=== PATIENT | female | born 1960 | race American Indian/Alaskan Native ===

== ENCOUNTER 2018-01-24 18:36 | Emergency (ER) | payer SELFPAY ==
--- NOTE | 2018-01-24 20:10 | ED PDOC ---
HPI: SOB/CHF/COPD Time Seen by Provider: 01/24/18 19:39 Chief Complaint (Nursing): Shortness Of Breath Chief Complaint (Provider): shortness of breath History Per: Patient History/Exam Limitations: no limitations Onset/Duration Of Symptoms: Days (x3) Current Symptoms Are (Timing): Still Present Exacerbating Factor(s): Exertion Associated Symptoms: denies: Leg/Calf Pain, Ankle/Leg Swelling Additional Complaint(s): Celeste Jones is a 57 year old female, with no significant past medical history, who presents to the emergency department complaining of shortness of breath associated with chest tightness onset for x3 days. Reports chest tightness and palpitations with exertion, ie. going up stairs. Patient states symptoms worsen with exertion. Patient denies any similar symptoms in the past. She denies any cough, recent travel, leg pain or swelling. No further medical complaints. PMD: None provided. Against Medical Advice - AMA Patient Left Against Medical Advice: The patient declines admission to the hospital and wishes to leave the Emergency Department. This action is against my medical advice. This decision was made with informed refusal. The patient was told that admission to the hospital is necessary. Explanation of the reasons why were discussed. The risks of leaving were explained to the patient and include, but are not li mited to, worsening of known or currently unknown conditions, permanent disability and from undiagnosed or untreated conditions. The patient has the capacity to make this informed decision and understands my explanation of the current medical problem and risks of leaving. The patient voluntarily accepts these risks and signed an AMA form documenting our conversation. The patient was given the opportunity to ask questions and reconsider. The patient was encouraged to return to the Emergency Department at any time for further care. Past Medical History Reviewed: Historical Data, Nursing Documentation, Vital Signs - Medical History PMH: No Chronic Diseases - Surgical History Surgical History: No Surg Hx - Family History Family History: States: Unknown Family Hx - Social History Current smoker - smoking cessation education provided: No Alcohol: None Drugs: Denies - Allergies Allergies/Adverse Reactions: Allergies Allergy/AdvReac Type Severity Reaction Status Date / Time No Known Allergies Allergy Verified 01/24/18 18:48 Wells Criteria for PE - Wells Criteria for Pulmonary Embolism Clinical Signs and Symptoms of DVT: No P.E is #1 Diagnosis, or Equally Likely: No Heart Rate >100: No Immobilization at least 3 days;Surgery previous 4 weeks: No Previous, objectively diagnosed PE or DVT: No Hemoptysis: No Malignancy w/treatment within 6 months, or palliative: No Total Score: 0 Review of Systems ROS Statement: Except As Marked, All Systems Reviewed And Found Negative Cardiovascular: Positive for: Chest Pain (tightness). Negative for: Edema Respiratory: Positive for: Shortness of Breath. Negative for: Cough Musculoskeletal: Negative for: Leg Pain Physical Exam - Reviewed Nursing Documentation Reviewed: Yes Vital Signs Reviewed: Yes - Physical Exam Appears: Positive for: No Acute Distress Head Exam: Positive for: ATRAUMATIC, NORMAL INSPECTION, NORMOCEPHALIC Skin: Positive for: Normal Color, Warm, Dry Eye Exam: Positive for: Normal appearance, EOMI, PERRL Neck: Positive for: Normal, Painless ROM Cardiovascular/Chest: Positive for: Regular Rate, Rhythm. Negative for: Murmur Respiratory: Positive for: Normal Breath Sounds, Other (speaking full sentences). Negative for: Respiratory Distress Gastrointestinal/Abdominal: Positive for: Normal Exam, Soft. Negative for: Tenderness, Guarding, Rebound Back: Positive for: Normal Inspection. Negative for: L CVA Tenderness, R CVA Tenderness, Vertebral Tenderness Extremity: Positive for: Normal ROM (upper and lower extremities). Negative for: Deformity, Swelling Neurologic/Psych: Positive for: Alert, Oriented - Laboratory Results Result Diagrams: 01/24/18 20:40 01/24/18 20:40 - ECG Interpretation Of ECG: NSR @ 76, TWI lateral leads. Medical Decision Making Medical Decision Making: Time: 19:39 Initial Impression: Shortness of breath Initial Plan: --EKG --PROBNP --CMP --Troponin I --Urine dipstick --CBC w/ differential --D Dimer --PTT --PT --Chest two views (PA/LAT) [RAD] --Reevaluation Scribe Attestation: Documented by Albert Hinds, acting as a scribe for Fe Berger MD. Provider Scribe Attestation: All medical record entries made by the Scribe were at my direction and personally dictated by me. I have reviewed the chart and agree that the record accurately reflects my personal performance of the history, physical exam, medical decision making, and the department course for this patient. I have also personally directed, reviewed, and agree with the discharge instructions and disposition. Disposition - Clinical Impression Clinical Impression: Dyspnea - Disposition Referrals: [facility] [Outside] Disposition: Against Medical Advice Disposition Time: 23:49 Condition: UNKNOWN Instructions: Shortness of Breath (Dyspnea) (DC), Leaving Against Medical Advice Forms: Tyto (Korean) ROOPA Risk Score for UA/NSTEMI - ROOPA Risk Score Age > 64: NO 3 or more CAD Risk Factors: NO Known CAD (Stenosis greater than 50%): NO Aspirin use in past 7 days: NO Severe Angina: NO EKG ST changes greater than 0.5mm: NO Positive Cardiac Marker: NO ROOPA Score: 0 % risk at 14 days of: all cause mortality, new or recurrent PA, or severe recurrent ischemia requiring urgen revascularization: 5%
[2018-01-24 21:09] LABS: PROTHROMBIN TIME 10.9 Seconds (9.8-13.1)
[2018-01-24 21:11] LABS: PARTIAL THROMBOPLASTIN TIME 36.9 Seconds (25.6-37.1)
[2018-01-24 21:12] LABS: BASO % 0.6 % (0.0-2.0); EOS # 0.2 K/uL (0.0-0.7); EOS % 3.2 % (0.0-4.0); LYMPH # 1.5 K/uL (1.0-4.3); LYMPH % 24.9 % (20.0-40.0); MEAN CELL VOLUME 87.4 fl (81.0-99.0); MEAN CORPUSCULAR HEMOGLOBIN 28.6 pg (27.0-31.0); MEAN CORPUSCULAR HGB CONC 32.7 g/dL (33.0-37.0); MEAN PLATELET VOLUME 10.1 fl (7.2-11.7); MONO # 0.5 K/uL (0.0-0.8); MONO % 7.8 % (0.0-10.0); NEUT # 3.8 K/uL (1.8-7.0); NEUT % 63.5 % (50.0-75.0); NRBC % 0.1 % (0.0-0.0); RBC 4.2 Mil/uL (3.80-5.20); RED CELL DISTRIBUTION WIDTH 14.9 % (11.5-14.5)
[2018-01-24 21:14] LABS: ALB/GLOB RATIO 1.1 (1.0-2.1); CALCIUM 9.1 mg/dL (8.4-10.2)
[2018-01-24 21:19] LABS: D DIMER < 200 ng/mlDDU (0-230)
[2018-01-24 21:25] LABS: TROPONIN I 0.018 ng/mL (0.00-0.120)
[2018-01-24] MEDS ORDERED: Albuterol-Ipratrop 3 mg / 0.5 (3 ml) UD INH STA (22:11)
[2018-01-24 22:58] LABS: SQUAMOUS EPITHIAL 11 /hpf (0-5); URINE BACTERIA RARE (<OCC); URINE BILIRUBIN NEGATIVE (NEGATIVE); URINE BLOOD NEGATIVE (NEGATIVE); URINE CLARITY SLIGHTY-CLOUDY (Clear); URINE COLOR YELLOW (YELLOW); URINE GLUCOSE (UA) NEG (Normal); URINE LEUKOCYTE ESTERASE TRACE Leu/uL (Negative); URINE PROTEIN 30 mg/dL (NEGATIVE); URINE UROBILINOGEN 0.2-1.0 mg/dL (0.2-1.0)
[2018-01-25 00:09] VITALS: BP 154/84; PULSE 73; RESP 15; TEMP 97.6; O2SAT 98
[2018-01-25 00:39] LABS: PROTHROMBIN TIME 11.7 Seconds (9.8-13.1)
[2018-01-25 00:42] LABS: PARTIAL THROMBOPLASTIN TIME 36.9 Seconds (25.6-37.1)
--- NOTE | 2018-01-25 13:43 | RAD ---
Date of service: 01/24/2018 HISTORY: SOB COMPARISON: No prior. TECHNIQUE: Chest PA and lateral FINDINGS: LUNGS: No active pulmonary disease. PLEURA: No significant pleural effusion identified. No pneumothorax apparent. CARDIOVASCULAR: No aortic atherosclerotic calcification present. Normal cardiac size. No pulmonary vascular congestion. OSSEOUS STRUCTURES: No significant abnormalities. VISUALIZED UPPER ABDOMEN: Normal. OTHER FINDINGS: None. IMPRESSION: No active disease.
--- NOTE | 2018-01-25 19:50 | CARD ---
APPROVED REPORT Date of service: 01/24/2018 EKG Measurement Heart [id number] <Conclusion> Normal sinus rhythm T wave abnormality, consider lateral ischemia Abnormal ECG
== END 2018-01-25 00:25 | disposition left against medical advice (07) ==
LOC: H.ER 18:36
DX: R06.00 Dyspnea, unspecified (principal)